=== PATIENT | female | born 1975 | race Caucasian/White ===

== ENCOUNTER → 2020-05-13 16:24 | Outpatient (CLI) | payer BC, SELFPAY ==
[2020-05-13 17:15] LABS: Basophils # 0.1 K/mm3 (0-0.2); Basophils % 1.1 % (0.1-2.0); Eosinophils # 0.3 K/mm3 (0.0-0.4); Eosinophils % 2.7 % (0.1-12.0); Hematocrit 43.5 % (37.0-47.0); Hemoglobin 14.6 g/dL (12.2-16.2); Lymphocytes # 2.6 K/mm3 (0.7-4.5); Mean Corpuscular HGB Conc 33.6 g/dL (31.8-35.4); Mean Corpuscular Hemoglobin 31.3 pg (27.0-31.2); Mean Corpuscular Volume 93.2 fl (81-99); Mean Platelet Volume 10.7 fl (7.4-10.4); Monocytes # 0.6 K/mm3 (0.1-1.0); Monocytes % 4.8 % (1.7-9.3); Neutrophils # 8.3 K/mm3 (1.8-7.8); Neutrophils % 69.4 % (37.0-80.0); Platelet Count 378 K/mm3 (142-424); Red Blood Count 4.67 M/mm3 (4.20-5.40); Red Cell Distribution Width 15.6 % (11.5-17.5)
[2020-05-13 17:49] LABS: Chloride 103 mmol/L (98-107); Potassium 4.6 mmoL/L (3.5-5.1); Sodium 135 mmol/L (136-145)
[2020-05-13 17:52] LABS: Alanine Aminotransferase 42 U/L (12-78); Albumin Level 4.9 g/dl (3.5-5.0); Albumin/Globulin Ratio 1.5 (1.1-1.8); Alkaline Phosphatase 144 U/L (38-126); Anion Gap 15.6 mEq/L (5-15); Aspartate Amino Transferase 36 U/L (14-36); Bilirubin,Total 0.5 mg/dl (0.2-1.3); Blood Urea Nitrogen 15 mg/dl (7-17); Calcium 10.6 mg/dl (8.4-10.2); Carbon Dioxide 21 mmol/L (22.0-30.0); Estimated Glomerular Filt Rate 60 ml/min (>60); GFR (African American) 73 ML/MIN (>60); Globulin 3.2 g/dL (1.3-3.2); Glucose 104 mg/dl (74-100); Total Protein,Serum 8.1 g/dl (6.3-8.2)
[2020-05-13 18:25] LABS: Erythrocyte Sedimentation Rate 20 mm/hr (0-20)
[2020-06-05 15:20] LABS: Antinuclear Antibodies (ANA) NEGATIVE
== END ==
PROVIDERS: Visit Provider Specialist
DX: G43.019 Migraine without aura, intractable, without status migrainosus (principal); H93.13 Tinnitus, bilateral; I10 Essential (primary) hypertension; R51.9 Headache, unspecified
CPT/HCPCS: 36415; 80053; 85025; 85651; 86038

== ENCOUNTER → 2020-05-22 09:56 | Outpatient (CLI) | payer BC, SELFPAY ==
--- NOTE | 2020-05-22 09:56 | MR_ITS ---
PROCEDURE: MR VENOGRAPHY HEAD WO CON CLINICAL INDICATION: eval for venous sinus thrombosis INCREASED HEADACHES, TINNITUS, DIZZINESS, ??PSEUDO TUMOR, HYPERTENSION COMPARISON: MR MR HEAD/BRAIN WO/W CON from 05/22/2020 TECHNIQUE: Routine multiplanar multi echo sequences are performed without gadolinium enhancement. FINDINGS: The sagittal sinus, transverse sinuses, and sigmoid sinuses have an unremarkable appearance. The a straight sinus and vein of Benny are unremarkable. On the reformatted images there is suggestion of a defect within the medial aspect of the left transverse sinus. This however is felt to be artifactual in nature as the MRI of the brain performed on the same day shows this area to have an unremarkable appearance on the post enhanced images. No evidence of in this infarcts on the MRI of the brain performed on the same day. IMPRESSION: Negative MR venography Dictated by: Marty Hernandez MD 05/24/2020 16:47 Marty Hernandez MD in [facility] 05/24/2020 16:47
--- NOTE | 2020-05-22 09:56 | MR_ITS ---
PROCEDURE: MR HEAD/BRAIN WO/W CON CLINICAL INDICATION: worsening headaches, tinnitus INCREASED HEADACHES, TINNITUS, DIZZINESS, ??PSEUDO TUMOR, HYPERTENSION 22ML PROHANCE INJECTED COMPARISON: No exams were available for comparison TECHNIQUE: Routine multiplanar multi echo sequences are performed without gadolinium enhancement. FINDINGS: No midline shift, mass effect, intracranial hemorrhage, or hydrocephalus is evident. No evidence of acute infarction. The cerebellopontine angles, cerebellum and brainstem have an unremarkable appearance. The ventricular system has an unremarkable appearance. No evidence of slit-like ventricles. No enhancing lesions are apparent. Unremarkable appearing periventricular white matter. The pituitary, optic chiasm, corpus callosum, and craniocervical junction have an unremarkable appearance. There is no evidence of cerebellar tonsillar ectopia. The hippocampal gyri and temporal horns are unremarkable. No mastoid effusion or sinus air-fluid level. IMPRESSION: Negative MRI of the brain without and with gadolinium enhancement Dictated by: Marty Hernandez MD 05/24/2020 16:34 Marty Hernandez MD in [facility] 05/24/2020 16:34
== END ==
PROVIDERS: PCP Internal Medicine; Visit Provider Specialist
DX: G43.019 Migraine without aura, intractable, without status migrainosus (principal); H93.13 Tinnitus, bilateral; R51.9 Headache, unspecified
CPT/HCPCS: 70544; 70553; A9576

== ENCOUNTER 2020-06-18 14:51 | Day surgery (SDC) | payer BC, SELFPAY ==
[2020-06-18 15:05] VITALS: BP 161/73; PULSE 90; RESP 18; TEMP 36.4; O2SAT 98; BMI 41.1
[2020-06-18 15:39] VITALS: BP 142/75; PULSE 89; RESP 18; O2SAT 98
[2020-06-18 15:42] VITALS: BP 138/78; PULSE 90; RESP 18
--- NOTE | 2020-06-18 15:52 | P.PCN_ITS ---
- Procedure Date: 06/18/20 Time: 15:52 Anesthesiologist:: Josiah Martinez MD Complications:: None Pre-procedure Diagnosis:: Patient with increasing headaches Post-procedure Diagnosis:: Same Indications for Procedure:: This patient is a pleasant 44-year-old white female who referred to us by Dr. Bee for increasing headaches. She requested lumbar puncture to obtain spinal fluid to send for indicated studies as part of her work-up. Procedure Details:: Lumbar puncture diagnostic Informed consent was obtained the risk and benefits of the procedure were ex plained to the patient. The patient was taken to the procedure room. She was placed in left lateral decubitus position. She was prepped and draped in sterile fashion. C-arm fluoroscopy was used to view the L4-5 and L5-S1 interspace. The skin and subcutaneous tissues were anesthetized using lidocaine. A 20-gauge spinal needle was inserted and advanced into the L5-S1 interspace until clear CSF was obtained. Opening pressures were found to be 19 cm of water. We obtain approximately 4 mL of clear CSF placed into each of 4 tubes. Total volume obtained was approximately 18 mL of clear CSF. Closing pressures were found to be 8 cm of water. The needle was withdrawn. A Band-Aid was placed. Patient tolerated the procedure well with no complications. Fluid was sent for indicated studies ordered by Dr. Perez. Plan and Disposition:: We will follow-up with her on a as needed basis. We did give this patient conservative treatment recommendations on preventing a post dural puncture headache. If the patient does have a post dural puncture headache that fails conservative treatments she can call us back in the pain clinic for lumbar epidural blood patch.
[2020-06-18 15:56] VITALS: BP 142/77; PULSE 93; RESP 18; O2SAT 98
[2020-06-18 16:35] LABS: Appearance,CSF Clear (Clear); Volume,CSF 13.5 mL; White Blood Cell,CSF 7 cells/uL (0-5)
[2020-06-18 16:36] LABS: Red Blood Cell,CSF 7 cells/uL (0)
[2020-06-18 16:48] LABS: Appearance,CSF Clear (Clear); Red Blood Cell,CSF 4 cells/uL (0); Volume,CSF 13.5 mL; White Blood Cell,CSF 2 cells/uL (0-5)
[2020-06-18 16:51] LABS: Glucose,CSF 71 mg/dl (40-70)
[2020-06-24 10:22] LABS: VDRL, Cerebrospinal Fluid Non Reactive (Non Rea:<1:1)
== END 2020-06-18 15:58 | disposition home or self-care (01) ==
LOC: SC.PAINP 14:52
PROVIDERS: PCP Internal Medicine; Visit Provider Anesthesiology
DX: R50.9 Fever, unspecified (principal); I10 Essential (primary) hypertension; E11.9 Type 2 diabetes mellitus without complications; F32.9 Major depressive disorder, single episode, unspecified; G43.909 Migraine, unspecified, not intractable, without status migrainosus; F41.9 Anxiety disorder, unspecified; Z88.8 Allergy status to other drugs, medicaments and biological substances
CPT/HCPCS: 62328; 82945; 84155; 86592; 87070; 87102; 87116; 87205; 87206; 89051